=== PATIENT | female | born 1990 | race Caucasian/White ===

== ENCOUNTER 2020-07-25 14:29 | Outpatient (CLI) | payer BC, SELFPAY ==
--- NOTE | ~2020-07-25 | US_ITS ---
EXAMINATION: US OB /maternal detail DATE: 07/25/2020 16:37 INDICATION: Assess anatomy during second trimester of TECHNIQUE: Multiple obstetric sonographic images performed. FINDINGS: There is a single living fetus in vertex presentation. The placenta is anterior and not low-lying wi th caudal margin 8.2 cm from the internal cervical os. Normal amniotic fluid volume. heart rat e of 154 beats per minute. The following anatomy was identified as normal: Lateral ventricles and choroid plexus Spine Heart Diaphragm Stomach Kidneys Bladder 3 vessel cord and cord insertion Bilateral upper and lower extremities including hands and feet The falx, cava septum pellucidum, cerebellum, cisterna magna and nuchal fold were able to be visualiz ed due to positioning of the head. The following biometric data were obtained: BPD: 6.4 cm -> 26 weeks 0 days Head circumference: 23.5 cm -> 25 weeks 4 days Abdominal circumference: 19.3 cm -> 24 weeks 0 days Femur length: 4.6 cm -> 25 weeks 2 days These measurements are concordant. Head circumference to abdominal circumference ratio: 1.22 (normal range 1.04-1.22). Estimated weight: 728 g (+/-) 109 g. or 1 lbs. 10 oz. (+/-) 4 oz. IMPRESSION: 1. Single living fetus with vertex presentation with heart rate of 154 bpm. 2. Gestational age by ultrasound of 25 weeks 2 day(s) (+/-) 1 week 5 day(s) with ultrasound estimat ed date of delivery (ALLEN) of 11/05/2020. Estimated weight is 96th percentile by Hadlock criteria when 11/19/2020 is used as the ALLEN. Please correlate with clinical information or earlier ultrasound s for most accurate ALLEN. 3. Normal survey aside from nonvisualization of mucosal fold and multiple structures in the hea d due to head positioning. Reviewed, dictated and finalized at location A. IMPRESSION: 1. Single living fetus with vertex presentation with heart rate of 154 b pm. 2. Gestational age by ultrasound of 25 weeks 2 day(s) (+/-) 1 week 5 day(s) w ith ultrasound estimated date of delivery (ALLEN) of 11/05/2020. Estimated w eight is 96th percentile by Hadlock criteria when 11/19/2020 is used as the ALLEN . Please correlate with clinical information or earlier ultrasounds for most ac curate ALLEN. 3. Normal survey aside from nonvisualization of mucosal fold and multiple structures in the head due to head positioning.
== END 2020-07-25 14:30 | disposition home or self-care (01) ==
PROVIDERS: Visit Provider Physician Assistant
DX: Z34.92 Encounter for supervision of normal pregnancy, unspecified, second trimester (principal); Z3A.25 25 weeks gestation of pregnancy
CPT/HCPCS: 76805

== ENCOUNTER 2020-09-16 16:43 | Outpatient (CLI) | payer BC, SELFPAY ==
--- NOTE | ~2020-09-16 | US_ITS ---
EXAMINATION: US OB follow up DATE: 09/16/2020 17:13 INDICATION: Evaluate growth TECHNIQUE: Real-time transabdominal obstetric ultrasound. FINDINGS: Comparison to 07/25/2020 There is a single living fetus in vertex presentation. The placenta is anterior without placenta pre via. cardiac activity and movement is noted with a heart rate of 125 beats per minute. T he amniotic fluid volume is below normal. ASHLYN measures 5.7 cm (normal range for gestational age is 8. 6-24.2 cm) The following biometric data were obtained: BPD: 77mm corresponds to gestational age 30 weeks 6 days. Head circumference: 297mm corresponds to gestational age 32 weeks 6 days. Femur length: 60mm corresponds to gestational age 31 weeks 3 days. IMPRESSION: 1. Single living intrauterine in vertex presentation with an estimated gestational age of 32 weeks 6 days by inititial ultrasound. Appropriate interval growth. 2: Oligohydramnios. ASHLYN measures 5.7 cm. 2. Normal placenta. Reviewed, dictated and finalized at location B. IMPRESSION: 1. Single living intrauterine in vertex presentation with an estimat ed gestational age of 32 weeks 6 days by inititial ultrasound. Appropriate int erval growth. 2: Oligohydramnios. ASHLYN measures 5.7 cm. 2. Normal placenta.
== END 2020-09-16 16:44 | disposition home or self-care (01) ==
PROVIDERS: Visit Provider Physician Assistant
DX: Z34.93 Encounter for supervision of normal pregnancy, unspecified, third trimester (principal); Z3A.32 32 weeks gestation of pregnancy
CPT/HCPCS: 76816

== ENCOUNTER 2020-10-09 13:30 | Outpatient (RCR) | payer BC, SELFPAY ==
[2020-09-25 13:58] VITALS: BP 117/64; PULSE 89
--- NOTE | 2020-09-25 13:58 | PC.NURSE ---
To U/S per wheelchair.
--- NOTE | 2020-09-25 14:35 | PC.NURSE ---
Pt back to U/S to complete measurements for EFW and growth.
--- NOTE | 2020-09-25 15:08 | PC.NURSE ---
Dr. Sánchez informed of reactive NST, BPP 8/8, ASHLYN 10.0 cm, umbilical doppler results with the result near baby low (<5th percentile). EFW result not on report. Will call U/S to have them add addendum to report. OK to discharge pt to home if EFW OK.
--- NOTE | 2020-09-25 15:40 | PC.NURSE ---
EFW in the 41st percentile. Pt discharged to home.
--- NOTE | ~2020-10-09 | US_ITS ---
EXAMINATION: US OB follow up w BPP, US umbilical doppler DATE: 09/25/2020 14:11 INDICATION: Oligohydramnios during third trimester of . Assess biophysical profile, amniotic fluid index, growth and umbilical Dopplers. TECHNIQUE: Real-time pelvic ultrasound was performed. The interpreting radiologist was not present fo r the study. COMPARISON: 09/16/2020 FINDINGS: There is a single living fetus in vertex presentation. The placenta is anterior. heart rate is 137 beats per minute (bpm). Normal amniotic fluid index of 10.0 cm (5th%-95%: 8.1-24.8 cm at 34 week s estimated gestational age) The umbilical artery demonstrates a peak systolic and diastolic velocity ratio of 1.9-2.0 at the fetu s, 2.3-2.5 in the mid cord and 2.4-2.5 near the placenta (5th%-95%: 2.07-3.53 at 34 weeks). Biophysical profile performed by the technologist: breathing (30 sec sustained breathing in 30 minutes): 2 out of 2 movement (3 gross body movements in 30 minutes): 2 out of 2 tone (one episode of fdlfayq-anmviybvd-wnzaygy limb movement): 2 out of 2 Amniotic fluid pocket (2 cm): 2 out of 2 Total score: 8 out of 8 IMPRESSION: 1. Single living fetus in vertex presentation with heart rate of 137 bpm. 2. Biophysical profile 8 out of 8. 3. Normal amniotic fluid index of 10.0 cm. 4. Umbilical artery systolic to diastolic velocity ratio is slightly below the 5th percentile at the fetus but within normal limits at the mid cord and near the placenta. Reviewed, dictated and finalized at location B. IMPRESSION: 1. Single living fetus in vertex presentation with heart rate of 137 bpm. 2. Biophysical profile 8 out of 8. 3. Normal amniotic fluid index of 10.0 cm. 4. Umbilical artery systolic to diastolic velocity ratio is slightly below the 5th percentile at the fetus but within normal limits at the mid cord and near t he placenta.
== END 2020-10-14 07:48 | disposition home or self-care (01) ==
LOC: ANHOBOP 13:30
PROVIDERS: Visit Provider Obstetrics & Gynecology
DX: O41.03X0 Oligohydramnios, third trimester, not applicable or unspecified (principal); Z3A.34 34 weeks gestation of pregnancy
CPT/HCPCS: 59025; 76816; 76819; 76820; 84112

== ENCOUNTER 2020-10-12 22:32 | Inpatient (IN) | payer BC, SELFPAY ==
[2020-10-13] VITALS (111 sets, daily range): BP systolic 86–143; BP diastolic 44–94; PULSE 74–105; RESP 16; TEMP 36.5–37.2; O2SAT 92–100
--- NOTE | 2020-10-13 00:45 | PM.IMHP ---
H&P: HPI History of Present Illness Date/Time: 10/13/20 00:45 Chief complaint: Cramping/Bleeding Narrative: Dunia Mayes is a 29 year old female G1 at 36w5d presenting to L&D with leaking of fluid, contractions, and vaginal bleeding. She states That she has been leaking fluid for several weeks however when she is examined, tests have come back negative. She had her last care appointment on Wednesday and after that appointment she states that she started to have change in her leaking of fluid. Over the last several days she has had continued vaginal leaking of fluids. Earlier tonight, she started to have abdominal pain and contractions. She also noticed some vaginal bleeding as well. An evaluation in triage [facility] was positive. Review of Systems Constitutional: Constitutional: Reports no additional constitutional complaints Cardiovascular: Cardiovascular: Reports no additional cardiovascular complaints Respiratory: Respiratory: Reports no additional respiratory complaints Gastrointestinal: Gastrointestinal: Reports no additional gastrointestinal complaints Genitourinary: Genitourinary: Reports no additional female genitourinary complaints Musculoskeletal: Musculoskeletal: Reports no additional musculoskeletal complaints Psychiatric: Psychiatric: Reports no additional psychiatric complaints Endocrine: Endocrine: Reports no additional endocrine complaints Hematologic/Lymphatic: Hematologic/Lymphatic: Reports no additional hematologic/lymphatic complaints Allergic/Immunologic: Allergic/Immunologic: Reports no additional allergic/immunologic complaints PMFSH Family History Family History Father Hypertension Cerebrovascular accident Grandparent Cerebrovascular accident Acute myocardial infarction Grandparent Cancer Grandparent Chronic obstructive pulmonary disease Mother Liver cirrhosis Asthma Social History Social History Substance use: never Spiritual care concerns: No Meds Home Medications and Allergies Home Medications Medication Instructions Recorded Confirmed Type PNV cmb#95-ferrous fumarate-FA 1 tablet PO DAILY 09/25/20 09/25/20 History [] aspirin [Adult Aspirin EC Low 81 mg PO DAILY 09/25/20 09/25/20 History Strength] ferrous sulfate 325 mg PO DAILY 09/25/20 09/25/20 History folic acid 2 mg PO BID 09/25/20 09/25/20 History sertraline 50 mg PO DAILY 09/25/20 09/25/20 History Allergies Allergy/AdvReac Type Severity Reaction Status Date / Time No Known Allergies Allergy Verified 10/09/20 13:45 Exam Const: General: cooperative, healthy appearing and uncomfortable (with contractions) HENMT: Head: normocephalic and atraumatic Resp: Effort & Inspection: normal respiratory effort and able to speak in complete sentences Cardio: Rate: regular rate Neuro: General: oriented to person, oriented to place, oriented to time and patient oriented x3 Psych: Appearance: grossly normal Mental Status: mental status grossly normal Speech and movement: Normal speech and movement present Assessment and Plan Assessment and plan (1) labor: Code(s): O60.00 - labor without delivery, unspecified trimester Status: Acute Assessment and Plan: Admit to L&D Pain management as requested Routine intrapartum care (2) premature rupture of membranes: Code(s): O42.919 - premature rupture of membranes, unspecified as to length of time between rupture and onset of labor, unspecified trimester Status: Acute Assessment and Plan: Pitocin for augmentation of labor if needed
[2020-10-13 00:48] LABS: Basophils Percent Auto 0.2 % (0.2-1.2); Eosinophils Absolute Auto 0.1 K/mm3 (0-0.3); Eosinophils Percent Auto 0.8 % (0-4.4); Hematocrit 29.5 % (37.0-47.0); Immature Granulocyte Absolute 0.14 K/mm3 (0.00-0.031); Immature Granulocyte Percent A 0.8 % (0-0.5); Lymphocytes Absolute Auto 2.81 K/mm3 (0.9-3.2); Lymphocytes Percent Auto 16.3 % (18.3-44.2); Mean Corpuscular HGB Conc 33.9 g/dl (32-36); Mean Corpuscular Hemoglobin 31.6 pg (26-34); Mean Corpuscular Volume 93.4 fl (80-100); Mean Platelet Volume 9.5 fl (7.4-10.4); Monocytes Absolute Auto 1.3 K/mm3 (0.1-0.6); Monocytes Percent Auto 7.7 % (2.6-8.5); Neutrophils Absolute Auto 12.8 K/mm3 (1.3-6.7); Neutrophils Percent Auto 74.2 % (45.5-73.1); Platelet Count Result 306 k/mm3 (150-375); Red Blood Count 3.16 M/mm3 (4.2-5.4); Red Cell Distribution Width 12.6 % (11.5-14.5); White Blood Count 17.2 K/mm3 (4.5-10.0)
[2020-10-13] MEDS: AMPICILLIN 2 GM/NS 100 ML 2 GM/100 ML BAG IVPB (01:30)
[2020-10-13] MEDS: LACTATED RINGERS 1,000 ML 125 ML IV CONT ×2 (02:02→05:49)
--- NOTE | 2020-10-13 03:17 | WPDANESEPP ---
Anes - Eval Pre Procedure Procedure: Labor epidural Date/Time: 10/13/20 03:17 Surgeon: Princess Preop Diagnosis: pain during labor Pre Op Diagnosis: Cramping/Bleeding Patient Data Age: 29 Gender: F Height: 1.65 m Weight: Last Vital Signs Pulse 82 10/13/20 03:16 BP 133/69 10/13/20 03:16 Pulse Ox 100 10/13/20 03:12 Allergies Allergy/AdvReac Type Severity Reaction Status Date / Time No Known Allergies Allergy Verified 10/09/20 13:45 Home Medications Medication Instructions Recorded Confirmed Type PNV cmb#95-ferrous fumarate-FA 1 tablet PO DAILY 09/25/20 09/25/20 History [] aspirin [Adult Aspirin EC Low 81 mg PO DAILY 09/25/20 09/25/20 History Strength] ferrous sulfate 325 mg PO DAILY 09/25/20 09/25/20 History folic acid 2 mg PO BID 09/25/20 09/25/20 History sertraline 50 mg PO DAILY 09/25/20 09/25/20 History Laboratory Tests 10/13/20 10/13/20 10/13/20 00:42 00:42 00:42 WBC 17.2 K/mm3 H K/mm3 (4.5-10.0) RBC 3.16 M/mm3 L M/mm3 (4.2-5.4) Hgb 10.0 g/dL L g/dL (12.0-15.0) Hct 29.5 % L % (37.0-47.0) MCV 93.4 fl fl (80-100) MCH 31.6 pg pg (26-34) MCHC 33.9 g/dl g/dl (32-36) RDW 12.6 % % (11.5-14.5) Plt Count 306 k/mm3 k/mm3 (150-375) MPV 9.5 fl fl (7.4-10.4) Immature Gran % (Auto) 0.8 % H % (0-0.5) Neut % (Auto) 74.2 % H % (45.5-73.1) Lymph % (Auto) 16.3 % L % (18.3-44.2) [place] % (Auto) 7.7 % % (2.6-8.5) Eos % (Auto) 0.8 % % (0-4.4) Baso % (Auto) 0.2 % % (0.2-1.2) Lymph # (Auto) 2.81 K/mm3 K/mm3 (0.9-3.2) [place] # (Auto) 1.3 K/mm3 H K/mm3 (0.1-0.6) Eos # (Auto) 0.1 K/mm3 K/mm3 (0-0.3) Baso # (Auto) 0.0 K/mm3 K/mm3 (0.0-0.1) Abs Immat Gran (auto) 0.14 K/mm3 H K/mm3 (0.00-0.031) Absolute Neuts (auto) 12.8 K/mm3 H K/mm3 (1.3-6.7) Absolute Nucleated RBC 0.0 K/mm3 K/mm3 (0.0-0.012) Nucleated RBC % 0.0 % % (0.0-0.2) RPR Pending Blood Type A Positive Antibody Screen Negative Patient hx anesthesia problems: none Family hx anesthesia problems: none PMFSH Family History Family History Father Hypertension Cerebrovascular accident Grandparent Cerebrovascular accident Acute myocardial infarction Grandparent Cancer Grandparent Chronic obstructive pulmonary disease Mother Liver cirrhosis Asthma Social History Social History Smoking status: Current every day smoker Tobacco type: cigarettes Substance use: never Spiritual care concerns: No Exam Day of Procedure 10/13/20 03:17
[2020-10-13] MEDS: OXYTOCIN 30 UNITS/NS 500 ML 30 UNITS/500 ML BAG 6 UNITS IV CONT (05:00)
[2020-10-13] MEDS: AMPICILLIN 1 GM/NS 50 ML 1 GM/50 ML BAG IVPB (05:49)
--- NOTE | 2020-10-13 08:18 | PM.OBPRVD ---
OB - Delivery Note Procedure Delivery date: 10/13/20 Procedure: Normal spontaneous vaginal delivery events: Labor < 37 Weeks Intrapartal events: None Delivery augmentation: pitocin Delivery monitor: external FHT and internal uterine Route of delivery: Laceration Description: Perineal - 1st Degree Delivery repair: vicryl Specimen: Yes Estimated blood loss (mL): 100 Anesthesia type: Epidural Narrative: Once she was noted to be complete and ready to push, the labor bed was broken down and legs were placed in stirrups for support. With contractions and maternal efforts, the presented in OA position. The head was delivered. Checked for nuchal cord, nuchal cord x1 reduced at the perineum. Gentle downward traction was applied and the anterior shoulder delivered without issues, followed by the posterior shoulder and rest of the body. was vigorous and crying, so delayed cord clamping of approximately 1 minute was performed. The cord was clamped and cut. Cord gasses collected. Placenta was delivered spontaneously. IV oxytocin administered and fundal massage applied. Exam was performed to identify any lacerations. 1st degree perineal laceration was repaired with 2-0 Vicryl. Good hemostasis noted. Patient tolerated the procedure well. All instrument and sponge counts were correct at the end of the procedure. Baby Date of : 10/13/20 Time of : 08:04 Weeks of gestation at delivery: 36 gender: Female Weight (pounds): 6 Weight (ounces): 2 presentation: vertex position: Left Occiput Anterior Placenta delivery description: Spontaneous cord vessel description: 3 Vessels score one minute: 7 score five minutes: 9
[2020-10-13] MEDS: OXYTOCIN 30 UNITS/NS 500 ML 30 UNITS/500 ML BAG 125 UNITS IV CONT (08:39)
--- NOTE | 2020-10-13 15:50 | PC.NURSE ---
Patient transferred to post room #287 via wheelchair. Oriented to unit, room, information board, rooming in, admission packet and security measures. Patient verbalizes understanding.
--- NOTE | 2020-10-13 20:45 | PC.NURSE ---
Breast pump provided due to late that is using shield at times. Instructions given on breast pump care and usage, pumping schedule, nipple care, and collection and storage of breast milk. Encouraged [id number], breast massage and manual expression to stimulate supply. Pumping log provided and reviewed. Assessed patient for correct flange size, placement and draw. Pt is currently using the 24mm flange size however appears to be slightly too large. Pt denies any discomfort with pumping however there is a ring around the aerola after pumping and has caused some slight swelling. Will have assess on Wednesday. Taught hand expression and pt is able to successfully demonstrate and express colostrum into a spoon. Patient verbalizes and demonstrates understanding of instructions.
[2020-10-13] MEDS: IBUPROFEN 600 MG TABLET PO (21:07)
[2020-10-13] MEDS: LANOLIN (LANSINOH) 7.5 GM CREAM 1 APPLIC TOPICAL (21:08)
[2020-10-14] MEDS: IBUPROFEN 600 MG TABLET PO ×2 (05:14→13:49)
[2020-10-14 05:24] LABS: Hematocrit 26.8 % (37.0-47.0); Hemoglobin 8.9 g/dL (12.0-15.0)
--- NOTE | 2020-10-14 07:19 | WPDANLDPN2 ---
Anes-Prog Note L&D Date/Time: 10/14/20 07:19 Comfortable throughout: labor Neuraxial method: epidural Epidural/Spinal procedure site: clean & non-tender Neuro status: Neuro function grossly intact. Cardiovascular status: normal Respiratory status: normal Airway patency: baseline Mental status: baseline Post-Op hydration status: normal Vital Signs: Last Vital Signs Temp 36.6 C 10/13/20 19:50 Pulse 90 10/13/20 19:50 Resp 16 10/13/20 19:50 BP 131/76 10/13/20 19:50 Pulse Ox 99 10/13/20 19:50 Pain score (VAS): 0/10 I/O: Intake & Output 10/13/20 10/13/20 10/14/20 15:59 23:59 07:59 Intake Total 1100 Output Total 87 Balance 1013 Post-procedural complaints: none Patient feedback: Patient satisfied with anesthetic care.
--- NOTE | 2020-10-14 07:37 | PM.OBPNVD ---
OB - PN: Subj Subjective Date/time seen: 10/14/20 07:37 S/p on 10/13 doing well this morning. Pain is well controlled. Lochia is minimal. Breast feeding. Ambulating. OB - PN: Obj Data Labs CBC & Chem 7: 10/14/20 03:50 Labs: Laboratory Results - last 24 hr 10/14/20 03:50 Hgb 8.9 L Hct 26.8 L OB - PN A/P Assessment and Plan (1) (normal spontaneous vaginal delivery): Code(s): O80 - Encounter for full-term uncomplicated delivery Status: Acute Assessment and Plan: Routine care Pain management Ambulate Time Spent With Patient Time: Total time spent is greater than 50% in coordination of care (as documented) at patient's floor/unit and/or counseling patient: Exam Const: General: cooperative, healthy appearing and comfortable Resp: Effort & Inspection: normal respiratory effort and able to speak in complete sentences Cardio: Rate: regular rate GI: Inspection: normal to inspection GI Palp: No abdominal tenderness and Yes Soft to palpation Other: fundus firm Neuro: General: oriented to person, oriented to place, oriented to time and patient oriented x3 Psych: Appearance: grossly normal Mental Status: mental status grossly normal
[2020-10-14 08:00] VITALS: BP 119/65; PULSE 78; RESP 18; TEMP 37.2; O2SAT 99
--- NOTE | 2020-10-14 08:50 | P.DS_ITS ---
DS: Admitting Diagnosis Admitting Diagnosis Admitting Diagnosis: Cramping/Bleeding. Labor DS: Discharge Diagnosis Discharge Diagnosis (1) (normal spontaneous vaginal delivery): Code(s): O80 - Encounter for full-term uncomplicated delivery Status: Acute Assessment and Plan: Routine care Pain management Ambulate OB - DS: Summary OB Procedures : None OB Procedures Intrapartum: Spontaneous Vag Delivery OB Procedures: : None Peripartum Data complications: none Status at Discharge Overall status at discharge: patient is progressing back to baseline Time Spent with Patient Time attestation: Total time spent providing and/or coordinating discharge services: Exam Const: General: cooperative, healthy appearing and comfortable Orientation/consciousness: oriented to person, oriented to place, oriented to time and patient oriented x3 HENMT: Head: normocephalic and atraumatic Resp: Effort & Inspection: normal respiratory effort and able to speak in complete sentences Cardio: Rate: regular rate GI: Inspection: normal to inspection Other: fundus firm Neuro: General: oriented to person, oriented to place, oriented to time and patient oriented x3 Psych: Appearance: grossly normal Mental Status: mental status grossly normal Speech and movement: Normal speech and movement present DS: Data Data Completed and Pending Pending studies at discharge: Pending at discharge 10/13/20 08:08 Surgical [PTH] Routine Labs on day of discharge: Labs from last 24 hours 10/14/20 03:50 Hgb 8.9 L Hct 26.8 L Discharge Plan Discharge Attending physician on discharge: Matilda Sheets Consulting providers: Kaitlynn Reyes Discharging Clinician: Matilda Sheets Patient Disposition: Home, Self-Care Activity: may shower, as tolerated and pelvic rest Diet: regular Patient Instructions: Antibiotic Form Stand Alone Forms: General Discharge Information Follow-up/Referrals: Matilda Sheets DO [Physician] - Discharge Medications: New docusate sodium 100 mg Capsule 100 mg PO BID PRN (Reason: Constipation) Qty: 60 RF: 0 ibuprofen 600 mg Tablet 600 mg PO Q6H PRN (Reason: Cramping) Qty: 90 RF: 0 Continued ferrous sulfate 325 mg (65 mg iron) Tablet 325 mg PO DAILY RF: 0 sertraline 25 mg Tablet 50 mg PO DAILY RF: 0 PNV cmb#95-ferrous fumarate-FA [] 28 mg iron- 800 mcg Tablet 1 tablet PO DAILY RF: 0 Discontinued aspirin [Adult Aspirin EC Low Strength] 81 mg Tablet,Delayed Release (Dr/Ec) 81 mg PO DAILY RF: 0 folic acid 1 mg Tablet 2 mg PO BID RF: 0 Date of admission: 10/12/20 22:32 Primary Care Provider: PHYSICIAN,COMBAT ENGINEER Admitting Provider: Mike Sánchez Attending physician on admission: Mike Sánchez
[2020-10-14] MEDS: MULTIVIT/MIN/PREN/FOL AC/IRON TABLET 1 TAB PO (09:38)
[2020-10-14] MEDS: POLYSACCHARIDE IRON COMPLEX 150 MG CAPSULE PO (09:38)
[2020-10-14] MEDS: SERTRALINE HCL 50 MG TABLET PO (09:38)
[2020-10-14] MEDS: DOCUSATE SODIUM 100 MG CAPSULE PO (09:38)
--- NOTE | 2020-10-14 09:45 | PC.NURSE ---
Consult with pt., mother reports she is without difficulties or discomfort. is sleepy at times and needs to awoke several times during the feeding. Reviewed infant feeding cues, frequencies, duration of feedings, feeding elimination flow sheet, and signs of adequate intake. Discussed and the 36 5/7 week , establishing may have its own unique set of circumstances due to their immaturity. infants may be less alert, have less stamina and may have issues with latch, suck and swallow. With the possible inability to have a vigorous suck swallow, infants may not be adequately stimulating mother and/or able to have adequate milk transfer. Pumping should be considered for additional stimulation and to offer EBM as part of supplement if needed. Demonstrated stimulation techniques to wake for feeding. Assisted with infant to breast. Reviewed positioning/alignment, holding breast and asymmetrical latch on. Several attempts before infant was able to latch correctly. nursed eagerly with steady draws and occasional followed with long pausing. Reviewed signs of a correct latch, effective nursing and suck swallow ratio. Infant was[able/unable] to maintain latch without discomfort to mother. Nipple care reviewed. Suggested mother stimulate to keep infant nursing effectively for increased intake and to assist with maintaining deep latch. Demonstrated how to adjust latch more deeply while feeding. Mother reports she does not wish to wake , if falls asleep while feeding, she will allow infant to sleep then return to breast once awake. Discussed intake and stimulation of milk supply. Advised to keep accurate records of feedings/elimination and call ICP if less than required. Advised to supplement if does not have required output or does not breastfeed for 5 hours. Assisted mother with a pump thru her insurance. Mother is feeding as required and waking to feed if needed. is currently meeting outcomes for weight, output, jaundice and feeding frequencies. Mother states she feels confident to continue effective at home. Reviewed transition to breast milk, signs of adequate intake, and engorgement/relief. Instructed to call ICP if intake/output less than required. Reviewed regular medications mother is taking. Information provided per Cassie. Reviewed community resources on the [employer] website and in the Mom/Baby guide. Information on outpatient services provided. Mother has no further questions at this time.
[2020-10-14 12:29] LABS: Rapid Plasma Reagin Non-Reactive (NonReactive)
--- NOTE | 2020-10-14 14:04 | PCCCNOTE ---
Care Coordination Note: Met with pt. who reports that she lives at home alone. FOB- is not involved. Pt. reports supportive family and friends. Pt. has all supplies at home including a crib, car seat, clothing, diapers and other supplies. Pt. plans to utilize [facility] services at discharge. Pt. reports she is on Sertraline 50mg that assists with her Bipolar/Depression diagnosis. Pt. denies any concerns regarding her mental health and reports she follows up with her PCP regularly. Pt. was provided resources. Denies any further case management needs.
[2020-10-15 10:06] VITALS: BP 133/75; PULSE 81; RESP 20; TEMP 36.8; O2SAT 100
== END 2020-10-14 15:29 | disposition home or self-care (01) | DRG 560 ==
LOC: ANHLDR 10-13 00:39 → ANHOB2 10-13 12:03 → ANHLDR 10-16 09:51 → ANHOB2 10-16 09:51
PROVIDERS: Admitting Provider Obstetrics & Gynecology; Visit Provider Obstetrics & Gynecology
DX: O42.913 Preterm premature rupture of membranes, unspecified as to length of time between rupture and onset of labor, third trimester (principal); Z37.0 Single live birth; Z3A.36 36 weeks gestation of pregnancy; O60.14X0 Preterm labor third trimester with preterm delivery third trimester, not applicable or unspecified; O70.0 First degree perineal laceration during delivery; O69.81X0 Labor and delivery complicated by cord around neck, without compression, not applicable or unspecified
CPT/HCPCS: 36415; 85014; 85018; 85025; 86592; 86850; 86900; 86901; 88307; A9270; J0290; J2590; J2795; J7120